=== PATIENT | male | born 1990 | race American Indian/Alaskan Native ===

== ENCOUNTER 2018-02-13 14:17 | Emergency (ER) | payer MEDICAID ==
[2018-02-13 14:25] VITALS: RESP 18; TEMP 98.3; O2SAT 98
[2018-02-13 14:37] VITALS: BMI 31.6
[2018-02-13] MEDS: Albuterol-Ipratrop 3 mg / 0.5 (3 ml) UD IH SCH ×3 (14:50→15:16)
--- NOTE | 2018-02-13 14:58 | ED PDOC ---
Arrival/HPI - General Chief Complaint: Shortness Of Breath Time Seen by Provider: 02/13/18 14:29 Historian: Patient - History of Present Illness Narrative History of Present Illness (Text): 02/13/18 14:49 27 year old male, with no significant past medical history, presents to the emergency department for a sudden onset of substernal central chest burning, discomfort and tightness prior to arrival. Patient informs he was sitting in a car with his co-worker when he had an acute onset of coughing and shortness of breath with audible wheezing. Patient denies any fever, chills, nausea, vomiting , diarrhea, abdominal pain, headache, palpitations or any other complaints. pt states in the car he was riding on, there are numerous construction equipments and it was very dirty/allison; Patient is here in the emergency department for further evaluation. Patient denies any medical complaints but admits smoking marijuana frequently, where his last usage was 2 days ago. He denies any other drug use. PCP: Dr. Parish PMhx: None PShx: Smokes marijuana FMHx: No acute MS within under 50 years within patient's immediate family members, which includes parents and siblings. Time/Duration: Prior to Arrival Symptom Onset: Sudden Symptom Course: Unchanged Quality: Aching, Pressure, Tightness, Burning Severity Level: Moderate Activities at Onset: Other (sitting in a car) Context: Work Past Medical History - Provider Review Nursing Documentation Reviewed: Yes - Travel History Have you recently traveled outside [place] w/in the past 3 mons?: No - Past History Past History: No Previous - Infectious Disease Hx of Infectious Diseases: None - Tetanus Immunization Tetanus Immunization: Up to Date - Past Medical History Past Medical History: No Previous - Cardiac Hx Cardiac Disorders: No - Pulmonary Hx Respiratory Disorders: No - Neurological Hx Neurological Disorder: No - HEENT Hx HEENT Disorder: No - Renal Hx Renal Disorder: No - Endocrine/Metabolic Hx Endocrine Disorders: No - Hematological/Oncological Hx Blood Disorders: No - Integumentary Hx Dermatological Disorder: No - Musculoskeletal/Rheumatological Hx Musculoskeletal Disorders: No - Gastrointestinal Hx Gastrointestinal Disorders: No - Genitourinary/Gynecological Hx Genitourinary Disorders: No - Psychiatric Hx Psychophysiologic Disorder: No Hx Substance Use: Yes (marijuana) - Past Surgical History Past Surgical History: No Previous - Surgical History Other/Comment: 09/2017 - Anesthesia Hx Anesthesia: No - Suicidal Assessment Feels Threatened In Home Enviroment: No Family/Social History - Physician Review Nursing Documentation Reviewed: Yes Family/Social History: No Known Family HX Smoking Status: Light Smoker < 10 Cigarettes Daily Hx Alcohol Use: Yes Frequency of alcohol use: Socially Hx Substance Use: Yes (marijuana) Hx Substance Use Treatment: No Allergies/Home Meds Allergies/Adverse Reactions: Allergies No Known Allergies Allergy (Verified 04/19/15 00:33) Review of Systems - Physician Review All systems were reviewed & negative as marked: Yes - Review of Systems Constitutional: Normal. absent: Fevers Eyes: Normal ENT: Normal Respiratory: SOB, Cough, Wheezing Cardiovascular: Chest Pain. absent: Palpitations Gastrointestinal: Normal. absent: Abdominal Pain, Diarrhea, Nausea, Vomiting Genitourinary Male: Normal Musculoskeletal: Normal Skin: Normal Neurological: Normal. absent: Headache Endocrine: Normal Hemo/Lymphatic: Normal Psychiatric: Normal Physical Exam Vital Signs Reviewed: Yes Vital Signs Temp Pulse Resp BP Pulse Ox 02/13/18 15:48 86 18 121/79 98 02/13/18 14:24 98.3 F 90 18 122/89 98 Temperature: Afebrile Blood Pressure: Normal Pulse: Regular Respiratory Rate: Normal Appearance: Positive for: Well-Appearing, Non-Toxic, Uncomfortable, Other ( resting in bed, alert/awake, GCS = 15, oriented x 3, uncomfortable, active coughing ntoed, cooperative, NAD) Pain Distress: None Mental Status: Positive for: Alert and Oriented X 3 - Systems Exam Head: Present: Atraumatic, Normocephalic Pupils: Present: PERRL, Other (no nystagmus, no photophobia) Extroacular Muscles: Present: EOMI Conjunctiva: Present: Normal Ears: Present: Normal Mouth: Present: Moist Mucous Membranes, Normal Lips, Normal Tounge, Normal Teeth. No: Drooling, Trismus Pharnyx: Present: Normal Nose (External): Present: Atraumatic Nose (Internal): Present: Normal Inspection Neck: Present: Normal Range of Motion, Trachea Midline. No: Meningeal Signs, MIDLINE TENDERNESS, Paraspinal Tenderness, JVD Respiratory/Chest: Present: Wheezes (bilaterally), Other (no rales/rhonchi, no accessory muscle use noted, no tachypenia). No: Respiratory Distress, Accessory Muscle Use, Rales, Rhonchi, Tachypneic Cardiovascular: Present: Regular Rate and Rhythm, Normal S1, S2. No: Murmurs Abdomen: Present: Normal Bowel Sounds, Other (well nourished male, no focal tenderness, no masses/rebound/guarding/rigidity, no roa's sign, no mcburney' s point tenderness). No: Tenderness, Distention, Peritoneal Signs Back: Present: Normal Inspection. No: CVA Tenderness, Midline Tenderness, Paraspinal Tenderness Upper Extremity: Present: Normal Inspection, Normal ROM, NORMAL PULSES, Neurovascularly Intact, Capillary Refill < 2s. No: Cyanosis, Edema, Deformity Lower Extremity: Present: Normal Inspection, NORMAL PULSES, Normal ROM, Neurovascularly Intact, Capillary Refill < 2 s. No: Edema, CALF TENDERNESS, Maureen's Sign Neurological: Present: GCS=15, CN II-XII Intact, Speech Normal Skin: Present: Warm, Dry, Normal Color, Other (cap refill < 1sec, no ulcerations , no petechiae). No: Rashes Psychiatric: Present: Alert, Oriented x 3, Normal Insight, Normal Concentration Medical Decision Making ED Course and Treatment: 02/13/18 15:00 Impression: 27 year old male presents to the emergency department for shortness of breath, cough and chest discomfort. Differential diagnoses: I have considered all differential diagnoses regarding patient's chief medical complaints/clinical findings but are not limited to: atypical chest pain; unlikely ACS or PE. Likely bronchospasm and reactive airway disorder. Plan: -- CXR -- EKG -- Nebulizer/Steroids --Labs -- Reassess and disposition Progress Notes: 02/13/18 16:00 pt is doing well pt felt much improved repeate Lung exam: CTA b/l, no w/r/r pt denied chest pain currently Vital signs stable pt is made aware of his medical results pt is encouraged no smoking pt is encouraged using the neb every 4-6 hours over the next 1-2 days, and PRN as directed after pt will f/u as directed pt will be discharged home Re-evaluation Time: 16:20 Reassessment Condition: Improved - RAD Interpretation Narrative RAD Interpretations (Text): 02/13/18 16:04 Chest X-ray reviewed by radiologist, shows: FINDINGS: LUNGS: No active pulmonary disease. PLEURA: No significant pleural effusion identified. No pneumothorax apparent. CARDIOVASCULAR: Normal. OSSEOUS STRUCTURES: No significant abnormalities. VISUALIZED UPPER ABDOMEN: Normal. OTHER FINDINGS: None. IMPRESSION: No active disease. 02/13/18 16:36 Radiology Orders: 02/13/18 14:46 CHEST TWO VIEWS (PA/LAT) [RAD] Stat [employer] Specialist: Radiologist - EKG Interpretation EKG Interpretation (Text): 02/14/18 00:39 NSR at 90 bpm, normal axis, no ectopy, voltage criteria LVH, no st-t changes, BORDERLINE EKG; NO OLD EKG TO COMPARE WITH Interpreted by ED Physician: Yes Type: 12 lead EKG Comparison: No previous EKG avail. - Medication Orders Current Medication Orders: Discontinued Medications Albuterol/Ipratropium (Duoneb 3 Mg/0.5 Mg (3 Ml) Ud) 3 ml IH Q15M PRADEEP Stop: 02/13/18 15:16 Last Admin: 02/13/18 15:16 Dose: 3 ml Ibuprofen (Motrin Tab) 600 mg PO STAT STA Stop: 02/13/18 14:45 Last Admin: 02/13/18 14:50 Dose: 600 mg MAR Pain/Vitals Document 02/13/18 14:50 SF (Rec: 02/13/18 14:50 SF [id number]) Pain Reassessment Is This A Pain ReAssessment? Yes Sleep Is patient sleeping during reassessment? No Presence of Pain Presence of Pain Yes Prednisone (Prednisone Tab) 60 mg PO STAT ONE Stop: 02/13/18 14:45 Last Admin: 02/13/18 14:50 Dose: 60 mg - Scribe Statement The provider has reviewed the documentation as recorded by the Selina Ayala. All medical record entries made by the Selina were at my direction and personally dictated by me. I have reviewed the chart and agree that the record accurately reflects my personal performance of the history, physical exam, medical decision making, and the department course for this patient. I have also personally directed, reviewed, and agree with the discharge instructions and disposition. Disposition/Present on Arrival - Present on Arrival Any Indicators Present on Arrival: No History of DVT/PE: No History of Uncontrolled Diabetes: No Urinary Catheter: No History of Decub. Ulcer: No History Surgical Site Infection Following: None - Disposition Have Diagnosis and Disposition been Completed?: Yes Diagnosis: Acute bronchospasm, Atypical chest pain, Wheezing Disposition: HOME/ ROUTINE Disposition Time: 16:38 Patient Plan: Discharge Condition: STABLE Discharge Instructions (ExitCare): Asthma, Adult (DC), Chest Pain That Is Not Caused by the Heart (DC), Wheezing, Chest Pain (ED) Print Language: BURMESE Additional Instructions: Make sure to see your doctor in 1-2 days DRINK PLENTY OF FLUIDS STOP SMOKING, DONT DO DRUGS take your medications as prescribed RETURN TO ED IF worse pain, cant breath, persistent vomiting, high fever >101- 102 for hours, altered behavior, slurr speech, facial changes, focal weakness ( arm/leg or both), unable to urinate, heavy/persistent bleeding, passing out, chest pain, or other medical emergencies Prescriptions: Albuterol Sulfate [Proair Hfa] 1 - 2 puff IH QID PRN #1 inh PRN Reason: Wheezing Ibuprofen [Motrin] 400 mg PO QID PRN #30 tab PRN Reason: Pain, Mild (1-3) Prednisone 50 mg PO DAILY #4 tablet Referrals: Bryanna Parish MD [Primary Care Provider] - Follow up with primary Forms: [employer] (Chinese)
[2018-02-13 15:48] VITALS: BP 121/79; PULSE 86
--- NOTE | 2018-02-13 16:02 | RAD ---
HISTORY: chest pain COMPARISON: No prior. TECHNIQUE: Chest PA and lateral FINDINGS: LUNGS: No active pulmonary disease. PLEURA: No significant pleural effusion identified. No pneumothorax apparent. CARDIOVASCULAR: Normal. OSSEOUS STRUCTURES: No significant abnormalities. VISUALIZED UPPER ABDOMEN: Normal. OTHER FINDINGS: None. IMPRESSION: No active disease.
--- NOTE | 2018-02-13 18:38 | CARD ---
APPROVED REPORT EKG Measurement Heart [id number] <Conclusion> Normal sinus rhythm Early Repolarization.
== END 2018-02-13 16:46 | disposition home or self-care (01) ==
LOC: ED 14:17
DX: J98.01 Acute bronchospasm (principal); R06.2 Wheezing; R07.89 Other chest pain; F17.210 Nicotine dependence, cigarettes, uncomplicated